=== PATIENT | male | born 1945 | race Caucasian/White ===

== ENCOUNTER 2017-07-03 20:18 | Inpatient (IN) | payer MEDICARE ==
[2017-07-03] MEDS ORDERED: SODIUM CHLORIDE 0.9% 1,000 ML IV STA ×2 (20:26→23:29)
[2017-07-03] MEDS ORDERED: SODIUM CHLORIDE 0.9% 500 ML IV STA (20:26)
[2017-07-03] MEDS ORDERED: DEXAMETHASONE SOD PHOSPHATE 10 MG/ML 1 ML VIAL IV STA (20:32)
[2017-07-03] MEDS ORDERED: ALBUTEROL NEBULIZED 2.5 MG/3 ML INHALATION STA (20:32)
[2017-07-03] MEDS ORDERED: IPRATROPIUM 0.5 MG/2.5 ML NEBU INHALATION STA (20:32)
--- NOTE | 2017-07-03 20:36 | ED ---
General Adult HPI - General Chief complaint: Shortness of Breath Stated complaint: Oxygen level 70 Source: patient, family, RN notes reviewed Mode of arrival: wheelchair Limitations: no limitations - History of Present Illness Initial comments: 71-year-old male presents with a one-day history of cough, weakness, and hypoxia. Patient does have pulse oximetry, was noted to be in the 70s with some improvement with nebulized albuterol. Patient has known history of COPD. He has been on steroids for the past 4 days, 10 mg daily. Patient also reports fever, and productive cough. Denies significant chest pain. Denies abdominal pain. States he has some nausea, no vomiting or diarrhea. He does have some left flank pain which is been present for several days. - Related Data Allergies Allergy/AdvReac Type Severity Reaction Status Date / Time No Known Allergies Allergy Verified 07/03/17 20:58 Review of Systems ROS Statement: Those systems with pertinent positive or pertinent negative responses have been documented in the HPI. ROS Other: All systems not noted in ROS Statement are negative. Past Medical History Past Medical History: Cancer, COPD Additional Past Medical History / Comment(s): esophageal cancer, lung cancer, Bird disease History of Any Multi-Drug Resistant Organisms: None Reported Additional Past Surgical History / Comment(s): (R) lung removed Past Psychological History: No Psychological Hx Reported Smoking Status: Never smoker Past Alcohol Use History: None Reported Past Drug Use History: None Reported General Exam Limitations: no limitations General appearance: alert, in distress Head exam: Present: atraumatic, normocephalic Eye exam: Present: normal appearance, PERRL ENT exam: Present: normal exam, mucous membranes dry Neck exam: Present: normal inspection. Absent: tenderness, meningismus Respiratory exam: Present: respiratory distress, accessory muscle use, decreased breath sounds Cardiovascular Exam: Present: normal rhythm, tachycardia GI/Abdominal exam: Present: soft. Absent: distended, tenderness Extremities exam: Present: normal inspection, normal capillary refill. Absent: pedal edema Back exam: Present: normal inspection, CVA tenderness (L) Neurological exam: Present: alert, oriented X3. Absent: motor sensory deficit Psychiatric exam: Present: normal affect, normal mood Skin exam: Present: warm, dry, intact. Absent: cyanosis, diaphoretic Course Vital Signs 07/03/17 07/03/17 07/03/17 20:20 20:50 21:04 Temperature 102.9 F H Pulse Rate 109 H 107 H 107 H Respiratory 24 Rate Blood Pressure 139/61 O2 Sat by Pulse 81 L Oximetry 07/03/17 07/03/17 07/03/17 21:21 21:42 21:52 Temperature 99.5 F Pulse Rate 107 H 114 H 114 H Respiratory 18 Rate Blood Pressure 129/56 O2 Sat by Pulse 96 Oximetry 07/03/17 22:13 Temperature Pulse Rate 113 H Respiratory 18 Rate Blood Pressure 131/75 O2 Sat by Pulse 97 Oximetry EKG Findings - EKG Comments: EKG Findings:: EKG obtained at 2035, shows sinus tachycardia ventricular 19, FL interval 128, castration 84, QTC 417, there is nonspecific ST segment changes, no STEMI criteria. EKG obtained at 2157 shows sinus tachycardia, ventricular rate 108, FL interval 90, QRS duration 90, QTC 440, no ST segment elevation, unchanged from previous EKG Medical Decision Making - Medical Decision Making 71-year-old male presenting with fever, tachycardia, tachypnea, hypoxia. Patient does have history of COPD. On initial evaluation he has minimal air entry, severe respiratory distress. He is placed on BiPAP. Given albuterol Atrovent, steroids, he is started on IV antibiotics for community acquired pneumonia. Chest x-ray shows bilateral pneumonia, worse in the right lower lobe , there is no history of aspiration. Patient has no chest pain. His risk status is significantly improved after initial treatment and BiPAP. Diagnosis: Respiratory failure requiring BiPAP, COPD exacerbation with hypoxia, community acquired pneumonia. - Lab Data Result diagrams: 07/03/17 20:30 07/03/17 20:30 Lab Results 07/03/17 07/03/17 07/03/17 Range/Units 20:30 20:30 20:30 WBC 10.2 (3.8-10.6) k/uL RBC 4.77 (4.30-5.90) m/uL Hgb 13.3 (13.0-17.5) gm/dL Hct 39.6 (39.0-53.0) % MCV 82.9 (80.0-100.0) fL MCH 27.9 (25.0-35.0) pg MCHC 33.7 (31.0-37.0) g/dL RDW 14.0 (11.5-15.5) % Plt Count 355 (150-450) k/uL Neutrophils % (Manual) 87 % Band Neutrophils % 1 % Lymphocytes % (Manual) 4 % Monocytes % (Manual) 8 % Neutrophils # (Manual) 8.90 H (1.3-7.7) k/uL Lymphocytes # (Manual) 0.41 L (1.0-4.8) k/uL Monocytes # (Manual) 0.82 (0-1.0) k/uL Nucleated RBCs 0 (0-0) /100 WBC Manual Slide Review Performed RBC Morphology Normal PT (9.0-12.0) sec INR (<1.2) APTT (22.0-30.0) sec VBG pH 7.43 H (7.31-7.41) VBG pCO2 38 (37-51) mmHg VBG HCO3 25 (24-28) mmol/L Sodium (137-145) mmol/L Potassium (3.5-5.1) mmol/L Chloride (98-107) mmol/L Carbon Dioxide (22-30) mmol/L Anion Gap mmol/L BUN (9-20) mg/dL Creatinine (0.66-1.25) mg/dL Est GFR (MDRD) Af Amer (>60 ml/min/1.73 sqM) Est GFR (MDRD) Non-Af (>60 ml/min/1.73 sqM) Glucose (74-99) mg/dL Plasma Lactic Acid Markus (0.7-2.0) mmol/L Calcium (8.4-10.2) mg/dL Magnesium (1.6-2.3) mg/dL Total Bilirubin (0.2-1.3) mg/dL AST (17-59) U/L ALT (21-72) U/L Alkaline Phosphatase (38-126) U/L Total Creatine Kinase 69 (55-170) U/L CK-MB (CK-2) 0.5 (0.0-2.4) ng/mL CK-MB (CK-2) Rel Index 0.7 Troponin I <0.012 (0.000-0.034) ng/mL Total Protein (6.3-8.2) g/dL Albumin (3.5-5.0) g/dL 10/14/17 10/14/17 10/14/17 Range/Units 20:30 20:30 20:30 WBC (3.8-10.6) k/uL RBC (4.30-5.90) m/uL Hgb (13.0-17.5) gm/dL Hct (39.0-53.0) % MCV (80.0-100.0) fL MCH (25.0-35.0) pg MCHC (31.0-37.0) g/dL RDW (11.5-15.5) % Plt Count (150-450) k/uL Neutrophils % (Manual) % Band Neutrophils % % Lymphocytes % (Manual) % Monocytes % (Manual) % Neutrophils # (Manual) (1.3-7.7) k/uL Lymphocytes # (Manual) (1.0-4.8) k/uL Monocytes # (Manual) (0-1.0) k/uL Nucleated RBCs (0-0) /100 WBC Manual Slide Review RBC Morphology PT 10.7 (9.0-12.0) sec INR 1.1 (<1.2) APTT 23.9 (22.0-30.0) sec VBG pH (7.31-7.41) VBG pCO2 (37-51) mmHg VBG HCO3 (24-28) mmol/L Sodium 132 L (137-145) mmol/L Potassium 4.3 (3.5-5.1) mmol/L Chloride 97 L (98-107) mmol/L Carbon Dioxide 22 (22-30) mmol/L Anion Gap 13 mmol/L BUN 14 (9-20) mg/dL Creatinine 0.80 (0.66-1.25) mg/dL Est GFR (MDRD) Af Amer >60 (>60 ml/min/1.73 sqM) Est GFR (MDRD) Non-Af >60 (>60 ml/min/1.73 sqM) Glucose 119 H (74-99) mg/dL Plasma Lactic Acid Markus 1.5 (0.7-2.0) mmol/L Calcium 9.1 (8.4-10.2) mg/dL Magnesium 1.9 (1.6-2.3) mg/dL Total Bilirubin 1.3 (0.2-1.3) mg/dL AST 50 (17-59) U/L ALT 80 H (21-72) U/L Alkaline Phosphatase 154 H (38-126) U/L Total Creatine Kinase (55-170) U/L CK-MB (CK-2) (0.0-2.4) ng/mL CK-MB (CK-2) Rel Index Troponin I (0.000-0.034) ng/mL Total Protein 6.7 (6.3-8.2) g/dL Albumin 3.8 (3.5-5.0) g/dL Critical Care Time Critical Care Time: Yes Total Critical Care Time: 35 Disposition Clinical Impression: Acute exacerbation of chronic obstructive airways disease, Respiratory failure with hypoxia, Community acquired pneumonia Disposition: ADMITTED IP TO THIS [facility] Condition: Serious Referrals: Tico Cordero MD [Primary Care Provider] - 1-2 days Decision to Admit Reason: Admit from EC Decision Date: 07/03/17 Decision Time: 22:39
[2017-07-03 20:49] LABS: CH 27.6; CHCM 33.4; HCT 39.6 % (39.0-53.0); HDW 2.86; HGB 13.3 gm/dL (13.0-17.5); Immature Gran Flag Slight; MCH 27.9 pg (25.0-35.0); MCHC 33.7 g/dL (31.0-37.0); MCV 82.9 fL (80.0-100.0); Mean Platelet Volume 6.4; RBC 4.77 m/uL (4.30-5.90); WBC 10.2 k/uL (3.8-10.6); WBC (Perox) 10.41
[2017-07-03 20:50] LABS: VBG PH 7.43 (7.31-7.41)
[2017-07-03 21:03] LABS: ALT 80 U/L (21-72); AST 50 U/L (17-59); Alkaline Phosphatase 154 U/L (38-126); Blood Urea Nitrogen 14 mg/dL (9-20); Calcium 9.1 mg/dL (8.4-10.2); Carbon Dioxide 22 mmol/L (22-30); Chloride 97 mmol/L (98-107); Glucose 119 mg/dL (74-99); Magnesium 1.9 mg/dL (1.6-2.3); Non-African American GFR(MDRD) >60 (>60 ml/min/1.73 sqM); Total Bilirubin 1.3 mg/dL (0.2-1.3); Total Protein 6.7 g/dL (6.3-8.2)
[2017-07-03 21:09] LABS: INR 1.1 (<1.2); Partial Thromboplastin Time 23.9 sec (22.0-30.0); Prothrombin Time 10.7 sec (9.0-12.0)
[2017-07-03 21:13] LABS: Creatine Kinase 69 U/L (55-170)
--- NOTE | 2017-07-03 21:18 | XR ---
EXAMINATION TYPE: XR chest 1V portable DATE OF EXAM: 07/03/2017 Comparison: None Clinical History: 71-year-old male difficulty in breathing, shortness of breath Findings: The sternotomy wires are present. Atherosclerotic arch calcifications. Heart is normal size. Hyperinf lation may reflect underlying COPD. There is bibasilar airspace opacity, right greater than left. The right side is much more extensive extending up to the midlung level. Impression: Right greater than left bibasilar airspace disease, fairly extensive on the right. Correlate for mult ifocal pneumonia or aspiration pneumonitis. Follow-up after treatment to ensure clearance.
[2017-07-03 21:24] LABS: Anion Gap 13 mmol/L; Potassium 4.3 mmol/L (3.5-5.1); Sodium 132 mmol/L (137-145)
[2017-07-03 21:26] LABS: Creatine Kinase MB 0.5 ng/mL (0.0-2.4); Troponin I <0.012 ng/mL (0.000-0.034)
[2017-07-03] MEDS: AZITHROMYCIN 500 MG in SODIUM CHLORIDE 0.9% 250 ML IVPB STA ×2 (21:30→22:08)
[2017-07-03 21:34] LABS: Add Differential Manual Differential
[2017-07-03 21:37] LABS: Band Neutrophils % 1 %; Nucleated Red Blood Cells 0 /100 WBC (0-0); Total Cells Counted 100
[2017-07-03 21:38] LABS: Manual Review Performed; RBC Morphology Normal
[2017-07-03] MEDS ORDERED: NALOXONE 0.4 MG/ML 1 ML VIAL IV PRN ×2 (22:34→23:24)
[2017-07-03] MEDS ORDERED: ACETAMINOPHEN TAB 325 MG TAB PO PRN (23:24)
[2017-07-03] MEDS ORDERED: ONDANSETRON 4 MG/2 ML VIAL IVP PRN (23:24)
[2017-07-03] MEDS ORDERED: IPRATROPIUM-ALBUTEROL 3 ML NEB INHALATION PRN (23:46)
[2017-07-03] MEDS ORDERED: HYDROcodone/APAP 7.5-325MG 1 EACH TAB PO PRN (23:49)
--- NOTE | 2017-07-03 23:53 | P.HPIM ---
History of Present Illness H&P Date: 07/03/17 Chief Complaint: Shortness of Breath 71-year-old male with past medical history significant for coronary artery disease and COPD presented to emergency department because of one to 2 days history of severe progressive shortness of breath. Patient recalls being in contact with one of his grandsons who was sick. He is having cough is productive of dark green phlegm, no hemoptysis. No chest pain. He does have subjective fevers but no chills. No nausea, vomiting, abdominal pain or diarrhea. No nasal congestion or sinus pain, no headaches. Patient has a history of COPD and he takes inhalers and nebulizers on a regular basis at home. In the emergency department patient was an severe respiratory distress and hypoxic and was started on BiPAP. Currently doing better. Chest x-ray showed bilateral infiltrates and patient was subsequently admitted to the hospital for further evaluation and management. Review of Systems 12 point review of system performed, negative except for HPI Past Medical History Past Medical History: Coronary Artery Disease (CAD), Cancer, COPD Additional Past Medical History / Comment(s): Lung cancer status post resection and chemotherapy in 2011, peripheral neuropathy, peripheral arterial disease, Reynaud phenomenon, HTN, Hyperlipidemia, Depression/anxiety, GERD. History of Any Multi-Drug Resistant Organisms: None Reported Additional Past Surgical History / Comment(s): (R) lung lobectomy, coronary artery bypass grafting, right mastoid surgery. Past Psychological History: No Psychological Hx Reported Smoking Status: Former smoker (Quit 14 years ago) Past Alcohol Use History: Occasional Past Drug Use History: None Reported Medications and Allergies Home Medications Medication Instructions Recorded Confirmed Type Albuterol Sulfate [Proventil Hfa] 2 puff INHALATION QID PRN 07/03/17 07/03/17 History Aspirin [Adult Low Dose Aspirin EC] 1 tab PO DAILY 07/03/17 07/03/17 History Calcium Carbonate [Tums] 1 tab PO DAILY 07/03/17 07/03/17 History Clopidogrel [Plavix] 1 tab PO DAILY 07/03/17 07/03/17 History Fluticasone/Vilanterol [Breo 1 puff INHALATION DAILY 07/03/17 07/03/17 History Ellipta 100-25 Mcg Inhaler] HYDROcodone/APAP 7.5-325MG [[place] 1 tab PO Q6HR PRN 07/03/17 07/03/17 History 7.5-325] Isosorbide Mononitrate ER [Imdur] 1 tab PO DAILY 07/03/17 07/03/17 History Levothyroxine Sodium [Synthroid] 1 tab PO QAM 07/03/17 07/03/17 History Losartan [Cozaar] 1 tab PO DAILY 07/03/17 07/03/17 History Metoprolol Tartrate [Lopressor] 1 tab DAILY 07/03/17 07/03/17 History Multivit-Min/FA/Lycopen/Lutein 1 tab PO DAILY 07/03/17 07/03/17 History [Centrum Silver Men Tablet] Omeprazole 20 mg PO BID 07/03/17 07/03/17 History PARoxetine [Paxil] 1 tab PO DAILY 07/03/17 07/03/17 History Pramipexole [Mirapex] 1 tab PO HS 07/03/17 07/03/17 History Simvastatin [Zocor] 20 mg PO HS 07/03/17 07/03/17 History Allergies Allergy/AdvReac Type Severity Reaction Status Date / Time No Known Allergies Allergy Verified 07/03/17 20:58 Physical Exam Vitals: Vital Signs Temp Pulse Resp BP Pulse Ox 07/03/17 22:13 113 H 18 131/75 97 07/03/17 21:52 114 H 07/03/17 21:42 99.5 F 114 H 18 129/56 96 07/03/17 21:21 107 H 07/03/17 21:04 107 H 07/03/17 20:50 107 H 07/03/17 20:20 102.9 F H 109 H 24 139/61 81 L Intake and Output 07/03/17 07/03/17 07/04/17 14:59 22:59 06:59 Other: Weight 61.235 kg Patient Weight 07/04/17 06:59 Weight 61.235 kg Constitutional: In [id number] respiratory distress, conversant, pleasant Eyes:Anicteric sclerae, moist conjunctiva, no lid-lag, PERRLA, ENMT: Oropharynx clear, no erythema, exudates Neck: Supple, FROM, no masses, or JVD, No carotid bruits, No thyromegaly Lungs: Bilateral wheezing and rhonchi especially with expiration, Clear to percussion, mild use of accessory muscles Cardiovascular: Tachycardic, regular, no gallops, or rubs, No peripheral edema Abdominal: Soft, Nontender, no guarding, rebound or rigidity, Normoactive bowel sounds, No hepatomegaly, No splenomegaly, No palpable mass Skin: Normal temperature, tone, texture, turgor, no induration, No subcutaneous nodules, No rash, lesions, No ulcers Extremities: No digital cyanosis, No clubbing, Pedal pulses intact and symmetrical, Radial pulses intact and symmetrical, No calf tenderness Psychiatric: Alert and oriented to person, place and time, appropriate affect, intact judgement Neuro: Muscles Strength 5/5 in all 4 extremities, Sensation to light touch grossly present throughout, Cranial nerves II-XII grossly intact, no focal sensory deficits Results CBC & Chem 7: 07/03/17 20:30 07/03/17 20:30 Labs: Abnormal Lab Results - Last 24 Hours (Table) 07/03/17 07/03/17 07/03/17 Range/Units 20:30 20:30 20:30 Neutrophils # (Manual) 8.90 H (1.3-7.7) k/uL Lymphocytes # (Manual) 0.41 L (1.0-4.8) k/uL VBG pH 7.43 H (7.31-7.41) Sodium 132 L (137-145) mmol/L Chloride 97 L (98-107) mmol/L Glucose 119 H (74-99) mg/dL ALT 80 H (21-72) U/L Alkaline Phosphatase 154 H (38-126) U/L Assessment and Plan Plan: #1 Acute hypoxic respiratory failure, acute exacerbation of chronic obstructive pulmonary disease, acute community-acquired pneumonia Labs and chest x-ray reviewed Admit to MedSurg BiPAP as needed for comfort Oxygen to keep O2 sats above 91-92% Ceftriaxone and azithromycin for community-acquired pneumonia coverage Solu-Medrol 60 mg every 6 hours DuoNeb every 6 hours and every 2 hours as needed #2 history of coronary artery disease status post CABG and stenting: Stable No acute coronary event Continue home medications #3 hypertension/hyperlipidemia/restless leg syndrome/depression Continue all medications, all stable #4 DVT prophylaxis Lovenox subcu and SCDs
[2017-07-04 05:20] LABS: Glucose,Whole Blood 177 mg/dL (75-99)
[2017-07-04 05:46] LABS: Appearance,Urine Clear (Clear); Bilirubin,Urine Negative (Negative); Glucose,Urine (UA) Negative (Negative); Ketones,Urine Trace (Negative); Leukocyte Esterase,Urine Negative (Negative); Nitrite,Urine Negative (Negative); PH, Urine 5.5 (5.0-8.0); Protein,Urine Trace (Negative); Specific Gravity,Urine 1.008 (1.001-1.035); UA Billing (MACRO vs. MICRO) CHEM; Urobilinogen,Urine <2.0 mg/dL (<2.0)
[2017-07-04 06:10] LABS: Basophils % (A) 0 %; CH 27.4; CHCM 32.2; Eosinophils % (A) 0 %; HCT 38.4 % (39.0-53.0); HDW 2.79; HGB 12.4 gm/dL (13.0-17.5); Luc # (Auto) 0.14; Luc % (Auto) 1; Lymphocytes # (A) 0.3 k/uL (1.0-4.8); Lymphocytes % (A) 2 %; MCH 27.6 pg (25.0-35.0); MCHC 32.3 g/dL (31.0-37.0); MCV 85.4 fL (80.0-100.0); Mean Platelet Volume 6.2; Monocytes # (A) 0.5 k/uL (0-1.0); Monocytes % (A) 4 %; Neutrophils # (A) 11.4 k/uL (1.3-7.7); Neutrophils % (A) 92 %; RDW 13.9 % (11.5-15.5); WBC 12.3 k/uL (3.8-10.6); WBC (Perox) 12.12
[2017-07-04 06:11] LABS: ALT 69 U/L (21-72); AST 36 U/L (17-59); Alkaline Phosphatase 139 U/L (38-126); Anion Gap 14 mmol/L; Blood Urea Nitrogen 12 mg/dL (9-20); Carbon Dioxide 21 mmol/L (22-30); Chloride 100 mmol/L (98-107); Glucose 189 mg/dL (74-99); Magnesium 2.1 mg/dL (1.6-2.3); Non-African American GFR(MDRD) >60 (>60 ml/min/1.73 sqM); Phosphorus 4.1 mg/dL (2.5-4.5); Potassium 4.3 mmol/L (3.5-5.1); Sodium 135 mmol/L (137-145); Total Bilirubin 0.5 mg/dL (0.2-1.3); Total Protein 6.3 g/dL (6.3-8.2)
[2017-07-04] MEDS: LACTATED RINGERS 1,000 ML IV SCH (08:00)
[2017-07-04] MEDS: ENOXAPARIN 40 MG/0.4 ML SYRINGE SQ SCH (08:02)
[2017-07-04] MEDS: methylPREDNISolone SOD SUCCI 125 MG/2 ML VIAL IV SCH ×2 (08:02→15:00)
[2017-07-04] MEDS: CALCIUM CARBONATE 500 MG CHEWABLE PO SCH (08:03)
[2017-07-04] MEDS: ISOSORBIDE MONONITRATE ER 30 MG TAB.ER.24H PO SCH (08:03)
[2017-07-04] MEDS: ASPIRIN 81 MG PO SCH (08:03)
[2017-07-04] MEDS: CLOPIDOGREL 75 MG TAB PO SCH (08:03)
[2017-07-04] MEDS: PARoxetine 10 MG TAB PO SCH (08:04)
[2017-07-04] MEDS: MULTIVITAMINS, THERA 1 EACH TAB PO SCH (08:04)
[2017-07-04] MEDS: METOPROLOL SUCCINATE (ER) 25 MG TAB.ER.24H PO SCH (08:04)
[2017-07-04] MEDS: PANTOPRAZOLE 40 MG TABLET PO SCH ×2 (08:04→21:55)
[2017-07-04] MEDS: LOSARTAN 25 MG TAB PO SCH (08:04)
[2017-07-04] MEDS: LEVOTHYROXINE 25 MCG TAB PO SCH (08:04)
[2017-07-04] MEDS: SYMBICORT 80-4.5 MCG INHALER INHALATION SCH ×2 (08:52→20:18)
[2017-07-04] MEDS: IPRATROPIUM-ALBUTEROL 3 ML NEB INHALATION SCH ×4 (08:52→20:19)
[2017-07-04 09:30] LABS: ABG HCO3 22 mmol/L (21-25); ABG PCO2 33 mmHg (35-45); ABG PH 7.45 (7.35-7.45); ABG PO2 57 mmHg (83-108); ABG TCO2 23 mmol/L (19-24)
--- NOTE | 2017-07-04 11:04 | P.PN ---
Subjective Progress Note Date: 07/04/17 Principal diagnosis: the patient is a 71-year-old male that presented with dyspnea and fever found to have a acute hypoxemic respiratory failure secondary to a bibasilar multifocal pneumonia started on empiric therapy with Rocephin and azithromycin for community-acquired pneumonia coverage, along with scheduled breathing treatments and bronchodilator therapy he needs to be placed on supplemental oxygen as he was hypoxic on room air. patient reports feeling much better today reports improvements of his breathing issues, denies any chest pain or fever. Has no other complaints Objective - Vital Signs Vital signs: Vital Signs Temp 96.2 F L 07/04/17 08:00 Pulse 94 07/04/17 09:31 Resp 18 07/04/17 08:00 BP 135/63 07/04/17 08:00 Pulse Ox 94 L 07/04/17 08:00 Intake & Output 07/03/17 07/04/17 07/04/17 18:59 06:59 18:59 Intake Total 320 Output Total 625 Balance -305 Weight 61.235 kg Intake: IV 320 Sodium Chloride 0.9% 1, 320 000 ml @ 40 mls/hr IV . Q24H STA Rx#:[id number] Output: Urine 625 Other: Voiding Method Urinal Urinal # Voids 1 - Exam Constitutional: No acute distress, conversant, pleasant Eyes: Anicteric sclerae, moist conjunctiva, no lid-lag, PERRLA ENMT: NC/AT,Oropharynx clear, no erythema, exudates Neck:Supple, FROM, no masses, or JVD, No carotid bruits; No thyromegaly Lungs: diminished in the bases with some migratory wheezes, Normal respiratory effort, no accessory muscle use Cardiovascular: Heart regular in rate and rhythm, No murmurs, gallops, or rubs no peripheral edema Abdominal: Soft Nontender, nom distended, no guarding, no rebound or rigidity, Normoactive bowel sounds No hepatomegaly, No splenomegaly, No palpable mass No abdominal wall hernia noted Skin: Normal temperature, tone, texture, turgor, No induration No subcutaneous nodules, No rash, lesions, No ulcers Extremities:No digital cyanosis No clubbing, Pedal pulses intact and symmetrical Radial pulses intact and symmetrical Normal gait and station, No calf tenderness Psychiatric: Alert and oriented to person, place and time, Appropriate affect Intact judgement Neuro: Muscles Strength 5/5 in all 4 extremities, Sensation to light touch grossly present throughout, Cranial nerves II-XII grossly intact. No focal sensory deficits - Labs CBC & Chem 7: 07/04/17 05:33 07/04/17 05:33 Labs: Abnormal Lab Results - Last 24 Hours (Table) 07/03/17 07/03/17 07/03/17 Range/Units 20:30 20:30 20:30 WBC (3.8-10.6) k/uL Hgb (13.0-17.5) gm/dL Hct (39.0-53.0) % Neutrophils # (1.3-7.7) k/uL Neutrophils # (Manual) 8.90 H (1.3-7.7) k/uL Lymphocytes # (1.0-4.8) k/uL Lymphocytes # (Manual) 0.41 L (1.0-4.8) k/uL ABG pCO2 (35-45) mmHg ABG pO2 (83-108) mmHg ABG O2 Saturation (94-97) % VBG pH 7.43 H (7.31-7.41) Sodium 132 L (137-145) mmol/L Chloride 97 L (98-107) mmol/L Carbon Dioxide (22-30) mmol/L Glucose 119 H (74-99) mg/dL POC Glucose (mg/dL) (75-99) mg/dL ALT 80 H (21-72) U/L Alkaline Phosphatase 154 H (38-126) U/L Albumin (3.5-5.0) g/dL Urine Protein (Negative) Urine Ketones (Negative) 07/04/17 07/04/17 07/04/17 Range/Units 05:18 05:30 05:33 WBC 12.3 H (3.8-10.6) k/uL Hgb 12.4 L (13.0-17.5) gm/dL Hct 38.4 L (39.0-53.0) % Neutrophils # 11.4 H (1.3-7.7) k/uL Neutrophils # (Manual) (1.3-7.7) k/uL Lymphocytes # 0.3 L (1.0-4.8) k/uL Lymphocytes # (Manual) (1.0-4.8) k/uL ABG pCO2 (35-45) mmHg ABG pO2 (83-108) mmHg ABG O2 Saturation (94-97) % VBG pH (7.31-7.41) Sodium (137-145) mmol/L Chloride (98-107) mmol/L Carbon Dioxide (22-30) mmol/L Glucose (74-99) mg/dL POC Glucose (mg/dL) 177 H (75-99) mg/dL ALT (21-72) U/L Alkaline Phosphatase (38-126) U/L Albumin (3.5-5.0) g/dL Urine Protein Trace H (Negative) Urine Ketones Trace H (Negative) 07/04/17 07/04/17 Range/Units 05:33 09:15 WBC (3.8-10.6) k/uL Hgb (13.0-17.5) gm/dL Hct (39.0-53.0) % Neutrophils # (1.3-7.7) k/uL Neutrophils # (Manual) (1.3-7.7) k/uL Lymphocytes # (1.0-4.8) k/uL Lymphocytes # (Manual) (1.0-4.8) k/uL ABG pCO2 33 L (35-45) mmHg ABG pO2 57 L (83-108) mmHg ABG O2 Saturation 91.0 L (94-97) % VBG pH (7.31-7.41) Sodium 135 L (137-145) mmol/L Chloride (98-107) mmol/L Carbon Dioxide 21 L (22-30) mmol/L Glucose 189 H (74-99) mg/dL POC Glucose (mg/dL) (75-99) mg/dL ALT (21-72) U/L Alkaline Phosphatase 139 H (38-126) U/L Albumin 3.4 L (3.5-5.0) g/dL Urine Protein (Negative) Urine Ketones (Negative) Assessment and Plan (1) Respiratory failure with hypoxia Narrative/Plan: * secondary to pneumonia superimposed on COPD exacerbation continue supplemental oxygen, will check an ABG * Continue with breathing treatments Status: Acute (2) Community acquired pneumonia Narrative/Plan: * continue current regimen with Rocephin and azithromycin Status: Acute (3) Sepsis Narrative/Plan: * secondary to community-acquired pneumonia, patient afebrile since admit noted leukocytosis of 12.3 * Continue antibiotic regimen azithromycin and Rocephin, blood cultures are pending Status: Acute (4) Acute exacerbation of chronic obstructive airways disease Narrative/Plan: * continue with systemic steroids scheduled and when necessary breathing treatments Status: Acute
[2017-07-04 21:04] LABS: Glucose,Whole Blood 201 mg/dL (75-99)
[2017-07-04] MEDS: AZITHROMYCIN 500 MG TAB PO SCH (21:55)
[2017-07-04] MEDS: INSULIN LISPRO (humaLOG) 300 UNIT/3 ML VIAL SQ SCH (21:55)
[2017-07-04] MEDS: PRAMIPEXOLE 0.25 MG TAB PO SCH (21:55)
[2017-07-04] MEDS: ATORVASTATIN 10 MG TAB PO SCH (21:55)
[2017-07-04] MEDS ORDERED: AZITHROMYCIN 500 MG in SODIUM CHLORIDE 0.9% 250 ML IVPB SCH (22:00)
[2017-07-05] MEDS: LACTATED RINGERS 1,000 ML IV SCH
[2017-07-05 06:03] LABS: Glucose,Whole Blood 134 mg/dL (75-99)
[2017-07-05] MEDS: INSULIN LISPRO (humaLOG) 300 UNIT/3 ML VIAL SQ SCH ×3 (06:10→17:26)
[2017-07-05 07:35] LABS: Anion Gap 10 mmol/L; Blood Urea Nitrogen 27 mg/dL (9-20); Calcium 9.1 mg/dL (8.4-10.2); Carbon Dioxide 24 mmol/L (22-30); Chloride 103 mmol/L (98-107); Glucose 132 mg/dL (74-99); Non-African American GFR(MDRD) >60 (>60 ml/min/1.73 sqM); Potassium 4.3 mmol/L (3.5-5.1); Sodium 137 mmol/L (137-145)
[2017-07-05 08:03] LABS: Basophils % (A) 0 %; CH 27.1; Eosinophils % (A) 0 %; HCT 36.8 % (39.0-53.0); HDW 2.87; Hypochromasia Slight; Luc # (Auto) 0.16; Luc % (Auto) 1; Lymphocytes # (A) 0.4 k/uL (1.0-4.8); Lymphocytes % (A) 3 %; MCH 27.8 pg (25.0-35.0); MCHC 32.7 g/dL (31.0-37.0); MCV 85.2 fL (80.0-100.0); Mean Platelet Volume 6.3; Monocytes # (A) 0.5 k/uL (0-1.0); Monocytes % (A) 3 %; Neutrophils # (A) 13.3 k/uL (1.3-7.7); Neutrophils % (A) 93 %; RBC 4.32 m/uL (4.30-5.90); RDW 13.8 % (11.5-15.5); WBC 14.4 k/uL (3.8-10.6)
[2017-07-05] MEDS: CALCIUM CARBONATE 500 MG CHEWABLE PO SCH (08:17)
[2017-07-05] MEDS: PANTOPRAZOLE 40 MG TABLET PO SCH (08:18)
[2017-07-05] MEDS: ISOSORBIDE MONONITRATE ER 30 MG TAB.ER.24H PO SCH (08:18)
[2017-07-05] MEDS: methylPREDNISolone SOD SUCCI 125 MG/2 ML VIAL IV SCH ×2 (08:18)
[2017-07-05] MEDS: ENOXAPARIN 40 MG/0.4 ML SYRINGE SQ SCH (08:18)
[2017-07-05] MEDS: PARoxetine 10 MG TAB PO SCH (08:18)
[2017-07-05] MEDS: CLOPIDOGREL 75 MG TAB PO SCH (08:19)
[2017-07-05] MEDS: LOSARTAN 25 MG TAB PO SCH (08:19)
[2017-07-05] MEDS: ASPIRIN 81 MG PO SCH (08:19)
[2017-07-05] MEDS: LEVOTHYROXINE 25 MCG TAB PO SCH (08:19)
[2017-07-05] MEDS: METOPROLOL SUCCINATE (ER) 25 MG TAB.ER.24H PO SCH (08:19)
[2017-07-05] MEDS: MULTIVITAMINS, THERA 1 EACH TAB PO SCH (08:20)
[2017-07-05] MEDS: SYMBICORT 80-4.5 MCG INHALER INHALATION SCH ×2 (09:05→19:59)
[2017-07-05] MEDS: IPRATROPIUM-ALBUTEROL 3 ML NEB INHALATION SCH ×4 (09:05→20:00)
--- NOTE | 2017-07-05 09:44 | P.PN ---
Subjective Progress Note Date: 07/05/17 Principal diagnosis: Pneumonia and COPD exacerbation 71-year-old male that came in with symptoms of shortness of breath. Found to have bilateral pneumonia and COPD exacerbation. Patient has been treated with IV steroids and IV antibiotics. Patient has been improving. Currently on nasal cannula. Objective - Vital Signs Vital signs: Vital Signs Temp 97.1 F L 07/05/17 08:00 Pulse 76 07/05/17 09:19 Resp 18 07/05/17 08:00 BP 147/65 07/05/17 08:00 Pulse Ox 94 L 07/05/17 08:00 Intake & Output 07/04/17 07/05/17 07/05/17 18:59 06:59 18:59 Intake Total 420 370 236 Output Total 400 700 Balance 20 -330 236 Weight 63.9 kg Intake: IV 320 370 Sodium Chloride 0.9% 1, 320 320 000 ml @ 40 mls/hr IV . Q24H STA Rx#:[id number] [id number] 1,000 mg In 50 Sodium Chloride 0.9% 50 ml @ 100 mls/hr IVPB Q24H BRYAN Rx#:[id number] Intake, IV Titration 100 Amount Sodium Chloride 0.9% 1, 100 000 ml @ 40 mls/hr IV . Q24H STA Rx#:[id number] Oral 236 Output: Urine 400 700 Other: Voiding Method Urinal Urinal Urinal - Exam gen:alert and oriented lungs:crackles no wheezes heart:s1s2 abdomen:soft and depressible,non tender ext:no edema - Labs CBC & Chem 7: 07/05/17 06:21 07/05/17 06:21 Labs: Abnormal Lab Results - Last 24 Hours (Table) 07/04/17 07/05/17 07/05/17 Range/Units 21:02 06:02 06:21 WBC 14.4 H (3.8-10.6) k/uL Hgb 12.0 L (13.0-17.5) gm/dL Hct 36.8 L (39.0-53.0) % Neutrophils # 13.3 H (1.3-7.7) k/uL Lymphocytes # 0.4 L (1.0-4.8) k/uL BUN (9-20) mg/dL Glucose (74-99) mg/dL POC Glucose (mg/dL) 201 H 134 H (75-99) mg/dL 07/05/17 Range/Units 06:21 WBC (3.8-10.6) k/uL Hgb (13.0-17.5) gm/dL Hct (39.0-53.0) % Neutrophils # (1.3-7.7) k/uL Lymphocytes # (1.0-4.8) k/uL BUN 27 H (9-20) mg/dL Glucose 132 H (74-99) mg/dL POC Glucose (mg/dL) (75-99) mg/dL Microbiology - Last 24 Hours (Table) 07/03/17 20:30 Blood Culture - Preliminary Blood No Growth after 24 hours Assessment and Plan (1) Respiratory failure with hypoxia Narrative/Plan: Secondary to pneumonia and COPD Currently on 2 L oxygen We'll try to wean patient not on oxygen at home Status: Acute (2) Acute exacerbation of chronic obstructive airways disease Narrative/Plan: Wean off Solu-Medrol to 40 mg every 12 Continue duonebs Status: Acute (3) Community acquired pneumonia Narrative/Plan: Continue Rocephin and azithromycin Clinically improving Status: Acute (4) Hypertension Narrative/Plan: controlled continue losartan and imdur Status: Acute (5) Hypothyroidism Narrative/Plan: continue synthroid Status: Acute (6) Hyperlipidemia Narrative/Plan: continue lipitor Status: Acute Plan: We'll continue to wean oxygen and steroid treatment. Patient seems to be improving we'll try to mobilize and get up.
[2017-07-05 11:54] LABS: Glucose,Whole Blood 133 mg/dL (75-99)
[2017-07-05 16:53] LABS: Glucose,Whole Blood 136 mg/dL (75-99)
[2017-07-05 20:47] LABS: Glucose,Whole Blood 158 mg/dL (75-99)
[2017-07-06] MEDS: ATORVASTATIN 10 MG TAB PO SCH ×2 (00:05→22:02)
[2017-07-06] MEDS: AZITHROMYCIN 500 MG TAB PO SCH ×2 (00:05→22:02)
[2017-07-06] MEDS: PANTOPRAZOLE 40 MG TABLET PO SCH ×3 (00:05→22:03)
[2017-07-06] MEDS: PRAMIPEXOLE 0.25 MG TAB PO SCH ×2 (00:05→22:02)
[2017-07-06] MEDS: methylPREDNISolone SOD SUCCI 40 MG/ML 1 ML VIAL IV SCH ×3 (00:06→22:02)
[2017-07-06] MEDS: INSULIN LISPRO (humaLOG) 300 UNIT/3 ML VIAL SQ SCH ×5 (00:06→22:03)
[2017-07-06] MEDS: LACTATED RINGERS 1,000 ML IV SCH (05:59)
[2017-07-06] MEDS: IPRATROPIUM-ALBUTEROL 3 ML NEB INHALATION SCH ×4 (07:19→20:12)
[2017-07-06] MEDS: SYMBICORT 80-4.5 MCG INHALER INHALATION SCH ×2 (07:19→20:13)
[2017-07-06] MEDS: CALCIUM CARBONATE 500 MG CHEWABLE PO SCH (07:59)
[2017-07-06] MEDS: CLOPIDOGREL 75 MG TAB PO SCH (07:59)
[2017-07-06] MEDS: ASPIRIN 81 MG PO SCH (07:59)
[2017-07-06] MEDS: ISOSORBIDE MONONITRATE ER 30 MG TAB.ER.24H PO SCH (08:00)
[2017-07-06] MEDS: METOPROLOL SUCCINATE (ER) 25 MG TAB.ER.24H PO SCH (08:00)
[2017-07-06] MEDS: PARoxetine 10 MG TAB PO SCH (08:00)
[2017-07-06] MEDS: LOSARTAN 25 MG TAB PO SCH (08:00)
[2017-07-06] MEDS: ENOXAPARIN 40 MG/0.4 ML SYRINGE SQ SCH (08:00)
[2017-07-06] MEDS: LEVOTHYROXINE 25 MCG TAB PO SCH (08:00)
[2017-07-06] MEDS: MULTIVITAMINS, THERA 1 EACH TAB PO SCH (08:00)
[2017-07-06 08:08] LABS: Glucose,Whole Blood 112 mg/dL (75-99)
[2017-07-06 10:05] LABS: Basophils % (A) 0 %; CH 28.4; CHCM 33.2; Eosinophils % (A) 0 %; HCT 36.1 % (39.0-53.0); HDW 2.85; HGB 11.5 gm/dL (13.0-17.5); Luc % (Auto) 1; Lymphocytes # (A) 0.4 k/uL (1.0-4.8); Lymphocytes % (A) 4 %; MCH 27.5 pg (25.0-35.0); MCV 85.8 fL (80.0-100.0); Monocytes # (A) 0.3 k/uL (0-1.0); Monocytes % (A) 2 %; Neutrophils # (A) 10.9 k/uL (1.3-7.7); Neutrophils % (A) 93 %; RDW 15.3 % (11.5-15.5); WBC 11.7 k/uL (3.8-10.6)
[2017-07-06 10:27] LABS: Anion Gap 14 mmol/L; Blood Urea Nitrogen 25 mg/dL (9-20); Calcium 9.1 mg/dL (8.4-10.2); Carbon Dioxide 22 mmol/L (22-30); Chloride 100 mmol/L (98-107); Glucose 164 mg/dL (74-99); Non-African American GFR(MDRD) >60 (>60 ml/min/1.73 sqM); Potassium 4.3 mmol/L (3.5-5.1); Sodium 136 mmol/L (137-145)
[2017-07-06 12:24] LABS: Glucose,Whole Blood 128 mg/dL (75-99)
--- NOTE | 2017-07-06 15:14 | P.PN ---
Subjective Progress Note Date: 07/06/17 Principal diagnosis: Pneumonia and COPD exacerbation 71-year-old male that came in with symptoms of shortness of breath. Found to have bilateral pneumonia and COPD exacerbation. Patient has been treated with IV steroids and IV antibiotics. Patient has been improving. Currently on nasal cannula. They have been unable to wean him off the oxygen today. Objective - Vital Signs Vital signs: Vital Signs Temp 97.7 F 07/06/17 07:00 Pulse 85 07/06/17 11:12 Resp 22 07/06/17 07:00 BP 136/63 07/06/17 07:00 Pulse Ox 93 L 07/06/17 07:19 Intake & Output 07/05/17 07/06/17 07/06/17 18:59 06:59 18:59 Intake Total 708 Output Total 650 Balance 708 -650 Intake: Oral 708 Output: Urine 650 Other: Voiding Method Urinal # Voids 1 0 1 # Bowel Movements 1 1 - Exam gen:alert and oriented lungs:no crackles, expiratory wheezes heart:s1s2 abdomen:soft and depressible,non tender ext:no edema - Labs CBC & Chem 7: 07/06/17 09:09 07/06/17 09:09 Labs: Abnormal Lab Results - Last 24 Hours (Table) 07/05/17 07/05/17 07/06/17 Range/Units 16:46 20:43 07:29 WBC (3.8-10.6) k/uL RBC (4.30-5.90) m/uL Hgb (13.0-17.5) gm/dL Hct (39.0-53.0) % Neutrophils # (1.3-7.7) k/uL Lymphocytes # (1.0-4.8) k/uL Sodium (137-145) mmol/L BUN (9-20) mg/dL Glucose (74-99) mg/dL POC Glucose (mg/dL) 136 H 158 H 112 H (75-99) mg/dL 07/06/17 07/06/17 07/06/17 Range/Units 09:09 09:09 12:23 WBC 11.7 H (3.8-10.6) k/uL RBC 4.20 L (4.30-5.90) m/uL Hgb 11.5 L (13.0-17.5) gm/dL Hct 36.1 L (39.0-53.0) % Neutrophils # 10.9 H (1.3-7.7) k/uL Lymphocytes # 0.4 L (1.0-4.8) k/uL Sodium 136 L (137-145) mmol/L BUN 25 H (9-20) mg/dL Glucose 164 H (74-99) mg/dL POC Glucose (mg/dL) 128 H (75-99) mg/dL Microbiology - Last 24 Hours (Table) 07/03/17 20:30 Blood Culture - Preliminary Blood No Growth after 48 hours Assessment and Plan (1) Respiratory failure with hypoxia Narrative/Plan: Secondary to pneumonia and COPD Currently on 2 L oxygen They have been unable to wean off oxygen today. Patient does say that he does use oxygen at home but he uses it intermittently. His with will bring in his portable oxygen tomorrow Current Visit: Yes Status: Acute Code(s): J96.91 - RESPIRATORY FAILURE, UNSPECIFIED WITH HYPOXIA SNOMED Code(s): 19464670043149338 (2) Acute exacerbation of chronic obstructive airways disease Narrative/Plan: Wean off Solu-Medrol to 40 mg every 12 Continue duonebs Seems to be improving Current Visit: Yes Status: Acute Code(s): J44.1 - CHRONIC OBSTRUCTIVE PULMONARY DISEASE W (ACUTE) EXACERBATION SNOMED Code(s): 662786060 (3) Community acquired pneumonia Narrative/Plan: Continue Rocephin and azithromycin Clinically improving Current Visit: Yes Status: Acute Code(s): J18.9 - PNEUMONIA, UNSPECIFIED ORGANISM SNOMED Code(s): 340258229 (4) Hypertension Narrative/Plan: controlled continue losartan and imdur Current Visit: Yes Status: Acute Code(s): I10 - ESSENTIAL (PRIMARY) HYPERTENSION SNOMED Code(s): 96725930 (5) Hypothyroidism Narrative/Plan: continue synthroid Current Visit: Yes Status: Acute Code(s): E03.9 - HYPOTHYROIDISM, UNSPECIFIED SNOMED Code(s): 64282016 (6) Hyperlipidemia Narrative/Plan: continue lipitor Current Visit: Yes Status: Acute Code(s): E78.5 - HYPERLIPIDEMIA, UNSPECIFIED SNOMED Code(s): 91231807 Plan: Patient continues to evaluate him tomorrow. Approximately going home tomorrow on his portable oxygen.
[2017-07-06 17:19] LABS: Glucose,Whole Blood 119 mg/dL (75-99)
--- NOTE | 2017-07-06 17:48 | CDI ---
In responding to this query, please exercise your independent professional judgment. The [facility] Coding Staff and Clinical Documentation Specialists appreciate your assistance in clarifying documentation, maintaining compliance with coding guidelines, accurately documenting patients condition and capturing severity of illness. The fact that a question is asked does not imply that any particular answer is desired or expected. Communication forms are a method of clarifying documentation and are not made part of the Legal Health Record. Thank you in advance for your clarification. Last Revision, July [address] [place] [address] Documentation Clarification Form Date: 07/06/2017 5:29:00 PM From: Jo Ann Crouch Admit Date: 07/03/2017 10:39:00 PM Patient Name: Curly Pope Visit Number: [id number] Discharge Date: Dr. Francy Quintanilla Sepsis was in the progress notes on 07/04/17 but has not continued in current progress notes. Patient history/risk factors: COPD, Esophageal cancer, Lung cancer, Clinical Indicators: Present with complaints of shortness of breath, cough, weakness and hypoxia. He reports fever, some nausea, no vomiting or diarrhea. Lab findings on admission: WBC 10.2, 12.3 Lactic acid 1.5 Radiology findings: chest x-ray: bilateral pneumonia worse on the right lower lobe , no history of aspiration Vital Signs on admission: 139/61 109 24 102.9 81 % RA Other Clinical Indicators: ED evaluation: presenting with fever, tachycardia, tachypnea, hypoxia severe respiratory distress Treatment: BiPAP, Albuterol duoneb's Zithromax IV (now PO) Rocephin IV Blood Culture (Pending) Monitor Labs In your professional opinion, can you please clarify Sepsis? Sepsis secondary to community-acquired pneumonia Ruled in or Ruled out Other Unable to determine Please document in your progress notes and discharge summary in order to capture severity of illness and risk of mortality. Include clinical findings that support your diagnosis. FYI: Press F11 to launch patient chart. MTDYina
[2017-07-06 21:12] LABS: Glucose,Whole Blood 187 mg/dL (75-99)
[2017-07-07] MEDS: LACTATED RINGERS 1,000 ML IV SCH (00:54)
[2017-07-07 01:00] VITALS: TEMP 97
[2017-07-07 07:24] LABS: Glucose,Whole Blood 98 mg/dL (75-99)
[2017-07-07 07:39] VITALS: BP 147/71; RESP 18
[2017-07-07] MEDS: INSULIN LISPRO (humaLOG) 300 UNIT/3 ML VIAL SQ SCH ×2 (07:42→12:34)
[2017-07-07] MEDS: LEVOTHYROXINE 25 MCG TAB PO SCH (09:19)
[2017-07-07] MEDS: ENOXAPARIN 40 MG/0.4 ML SYRINGE SQ SCH (09:19)
[2017-07-07] MEDS: CLOPIDOGREL 75 MG TAB PO SCH (09:19)
[2017-07-07] MEDS: CALCIUM CARBONATE 500 MG CHEWABLE PO SCH (09:19)
[2017-07-07] MEDS: LOSARTAN 25 MG TAB PO SCH (09:19)
[2017-07-07] MEDS: ISOSORBIDE MONONITRATE ER 30 MG TAB.ER.24H PO SCH (09:19)
[2017-07-07] MEDS: ASPIRIN 81 MG PO SCH (09:19)
[2017-07-07] MEDS: methylPREDNISolone SOD SUCCI 40 MG/ML 1 ML VIAL IV SCH (09:20)
[2017-07-07] MEDS: PARoxetine 10 MG TAB PO SCH (09:21)
[2017-07-07] MEDS: METOPROLOL SUCCINATE (ER) 25 MG TAB.ER.24H PO SCH (09:21)
[2017-07-07] MEDS: PANTOPRAZOLE 40 MG TABLET PO SCH (09:21)
[2017-07-07] MEDS: MULTIVITAMINS, THERA 1 EACH TAB PO SCH (09:21)
[2017-07-07] MEDS: SYMBICORT 80-4.5 MCG INHALER INHALATION SCH (09:32)
[2017-07-07] MEDS: IPRATROPIUM-ALBUTEROL 3 ML NEB INHALATION SCH ×2 (09:32→13:39)
--- NOTE | 2017-07-07 09:37 | P.DS ---
Providers Date of admission: 07/03/17 22:39 Expected date of discharge: 07/07/17 Attending physician: Eamon Kennedy MD Primary care physician: Tico Cordero - Discharge Diagnosis(es) (1) Respiratory failure with hypoxia Current Visit: Yes Status: Acute (2) Acute exacerbation of chronic obstructive airways disease Current Visit: Yes Status: Acute (3) Community acquired pneumonia Current Visit: Yes Status: Acute (4) Hypertension Current Visit: Yes Status: Acute (5) Hypothyroidism Current Visit: Yes Status: Acute (6) Hyperlipidemia Current Visit: Yes Status: Acute (7) Sepsis Current Visit: Yes Status: Acute Hospital Course: this is a 71-year-old male with history of long esophageal cancer that comes in with symptoms of shortness of breath and tachycardia. Patient was admitted with pneumonia and COPD exacerbation and sepsis. IV antibiotics IV fluids started. Lactic acid on admission was 2. which resolved. Patient's respiratory status has been improving. He was treated with Cipro and azithromycin IV Solu-Medrol and DuoNeb treatments. She does have home O2 which he says he used on a as needed basis. But today even though patient clinically is looking better still needing oxygen. So I did recommend that he keep his oxygen 24 hours a day until he sees his pulmonary doctor Dr. Becker. Then he consider seeing further instructions on how to manage his oxygen. Now patient will be discharged home on 5 more days of Augmentin and prednisone tapering dose. He was taking prednisone 10 mg at baseline. gen:alert and oriented lungs:clear to auscultation, no wheezes, no crackles heart:s1s2 abdomen:soft and depressible,non tender ext:no edema 34 minutes were spent on discharge time Patient Condition at Discharge: Stable Plan - Discharge Summary New Discharge Prescriptions: New Amoxicillin/Potassium Clav [Augmentin 875-125 Tablet] 1 tab PO Q12HR #10 tab Continue Albuterol Sulfate [Proventil Hfa] 2 puff INHALATION RT-QID PRN PRN Reason: Shortness Of Breath Aspirin [Adult Low Dose Aspirin EC] 81 mg PO DAILY HYDROcodone/APAP 7.5-325MG [Fletcher 7.5-325] 1 tab PO Q6HR PRN PRN Reason: Pain Fluticasone/Vilanterol [Breo Ellipta 100-25 Mcg Inhaler] 1 puff INHALATION RT -DAILY Clopidogrel [Plavix] 75 mg PO DAILY Calcium Carbonate [Tums] 500 mg PO DAILY PARoxetine [Paxil] 10 mg PO DAILY Metoprolol Tartrate [Lopressor] 25 mg PO DAILY Losartan [Cozaar] 25 mg PO DAILY Levothyroxine Sodium [Synthroid] 25 mcg PO QAM Isosorbide Mononitrate ER [Imdur] 30 mg PO DAILY Multivit-Min/FA/Lycopen/Lutein [Centrum Silver Men Tablet] 1 tab PO DAILY Omeprazole 20 mg PO DAILY Simvastatin [Zocor] 20 mg PO HS Pramipexole [Mirapex] 0.5 mg PO HS predniSONE 10 mg PO DAILY #30 tab Discharge Medication List Albuterol Sulfate [Proventil Hfa] 2 puff INHALATION RT-QID PRN 07/03/17 [History ] Aspirin [Adult Low Dose Aspirin EC] 81 mg PO DAILY 07/03/17 [History] Calcium Carbonate [Tums] 500 mg PO DAILY 07/03/17 [History] Clopidogrel [Plavix] 75 mg PO DAILY 07/03/17 [History] Fluticasone/Vilanterol [Breo Ellipta 100-25 Mcg Inhaler] 1 puff INHALATION RT- DAILY 07/03/17 [History] HYDROcodone/APAP 7.5-325MG [Fletcher 7.5-325] 1 tab PO Q6HR PRN 07/03/17 [History] Isosorbide Mononitrate ER [Imdur] 30 mg PO DAILY 07/03/17 [History] Levothyroxine Sodium [Synthroid] 25 mcg PO QAM 07/03/17 [History] Losartan [Cozaar] 25 mg PO DAILY 07/03/17 [History] Metoprolol Tartrate [Lopressor] 25 mg PO DAILY 07/03/17 [History] Multivit-Min/FA/Lycopen/Lutein [Centrum Silver Men Tablet] 1 tab PO DAILY [History] Omeprazole 20 mg PO DAILY 07/03/17 [History] PARoxetine [Paxil] 10 mg PO DAILY 07/03/17 [History] Simvastatin [Zocor] 20 mg PO HS 07/03/17 [History] Pramipexole [Mirapex] 0.5 mg PO HS 07/04/17 [History] Amoxicillin/Potassium Clav [Augmentin 875-125 Tablet] 1 tab PO Q12HR #10 tab [Rx] predniSONE 10 mg PO DAILY #30 tab 07/07/17 [Rx] Follow up Appointment(s)/Referral(s): Tico Cordero MD [Primary Care Provider] - 1-2 days Angie Becker MD [Medical Doctor] - 1 Week Activity/Diet/Wound Care/Special Instructions: light duty for the first week and then gradually increase activity level Discharge Disposition: HOME SELF-CARE
[2017-07-07 12:21] LABS: Glucose,Whole Blood 161 mg/dL (75-99)
[2017-07-07 13:50] VITALS: PULSE 84
== END 2017-07-07 14:35 | disposition home or self-care (01) | DRG 193 ==
LOC: EC 20:18 → 6SEL 22:39 → 4MS4W 07-05 21:16
PROVIDERS: ADMIT Internal Medicine; ATTEND Internal Medicine
DX: J18.9 Pneumonia, unspecified organism (principal); J96.01 Acute respiratory failure with hypoxia; J44.1 Chronic obstructive pulmonary disease with (acute) exacerbation; J44.0 Chronic obstructive pulmonary disease with (acute) lower respiratory infection; G62.9 Polyneuropathy, unspecified; I25.10 Atherosclerotic heart disease of native coronary artery without angina pectoris; F41.9 Anxiety disorder, unspecified; I10 Essential (primary) hypertension; E78.5 Hyperlipidemia, unspecified; G25.81 Restless legs syndrome; E03.9 Hypothyroidism, unspecified; F32.9 Major depressive disorder, single episode, unspecified; I73.9 Peripheral vascular disease, unspecified; K21.9 Gastro-esophageal reflux disease without esophagitis; Z92.21 Personal history of antineoplastic chemotherapy; Z79.82 Long term (current) use of aspirin; Z79.02 Long term (current) use of antithrombotics/antiplatelets; Z79.52 Long term (current) use of systemic steroids; Z79.899 Other long term (current) drug therapy; Z95.5 Presence of coronary angioplasty implant and graft; Z95.1 Presence of aortocoronary bypass graft; Z85.118 Personal history of other malignant neoplasm of bronchus and lung; Z87.891 Personal history of nicotine dependence; Z85.01 Personal history of malignant neoplasm of esophagus; Z99.81 Dependence on supplemental oxygen
CPT/HCPCS: 36415; 36600; 71010; 80048; 80053; 81003; 82550; 82553; 82803; 82805; 83036; 83605; 83735; 84100; 84484; 85025; 85610; 85730; 87040; 87070; 87205; 93005; 94640; 94644; 94660; 94760; 96365; 96366; 96367; 96375; 99291